=== PATIENT | female | born 1990 | race Caucasian/White ===

== ENCOUNTER 2023-08-08 10:01 | Inpatient (IN) ==
[~2023-08-08 10:01] MED LIST: ONDANSETRON INJ 2 MG/ML 2 ML VIAL ONE
[2023-08-08] MEDS: SODIUM CHLORIDE 0.9% 500 ML IV STA (10:05)
[2023-08-08] MEDS: KETOROLAC TROMETHAMINE 15 MG/ML VIAL IV STA (10:05)
[2023-08-08] MEDS: ONDANSETRON INJ 2 MG/ML 2 ML VIAL IV STA (10:05)
[2023-08-08] MEDS: KETOROLAC TROMETHAMINE 15 MG/ML VIAL ONE (10:06)
--- NOTE | 2023-08-08 10:09 | Emergency Department Note ---
History of Present Illness General Chief complaint: Abdominal Pain Stated complaint: abd pain Time Seen by Provider: 08/08/23 10:06 History of Present Illness Maximum Pain Intensity: 9 NAME: ISABEL KIRKPATRICK AGE: 32 SEX: F : 1990 ARRIVES VIA: Walk-In INFORMANT: Patient ED PROVIDER(S): IZABEL Bueno, Tesfaye Toro MD The patient is a 32-year-old female who arrives to the emergency department for evaluation of epigastric pain, acute onset. Patient is a junior technical writer here at the [employer], she reports shortly after eating breakfast she began to have severe epigastric pain with nausea and vomiting. She states she had a syncopal episode from severe pain. The patient denies fever, diarrhea, constipation, urinary concerns. Home Medications Medication Instructions Recorded Confirmed Type escitalopram oxalate 20 mg tablet 20 mg PO QAM 08/08/23 08/08/23 History Allergies Allergy/AdvReac Type Severity Reaction Status Date / Time Sulfa (Sulfonamide Allergy Intermediate Hives Verified 08/08/23 12:10 Antibiotics) Past Med/Surg History Medical History Anxiety and depression Social History Smoking Status: Never smoker Preferred Language: Tuvaluan Feels Safe at Home: Yes Physical Exam VITALS: Vitals are noted on the nurse's note and reviewed by myself. Vital signs stable. GENERAL: 32-year-old female, in no acute distress, nondiaphoretic, well- developed well-nourished. SKIN: The skin was without rashes, erythema, edema, or bruising. HEAD: Normocephalic atraumatic. HEART: Regular rate and rhythm without murmurs gallops or rubs. LUNGS: Clear to auscultation bilaterally without wheezes, rales or rhonchi. No retractions or accessory muscle use. ABDOMEN: Positive bowel sounds x 4. Tender to palpation epigastric, right upper quadrant. NEURO: Patient was alert and oriented to person place and time. No focal neurological deficits. Course Administered Medications Discontinued Medications Hydromorphone HCl (Hydromorphone Inj 0.5 Mg/0.5 Ml Syr) 0.5 mg IV NOW STA Stop: 08/08/23 10:17 Last Admin: 08/08/23 10:19 Dose: 0.5 mg Documented By: EDEN Hydromorphone HCl (Hydromorphone Inj 0.5 Mg/0.5 Ml Syr) 0.5 mg IV NOW STA Stop: 08/08/23 10:54 Last Admin: 08/08/23 11:02 Dose: 0.5 mg Documented By: EDEN Hydromorphone HCl (Hydromorphone Inj 0.5 Mg/0.5 Ml Syr) 0.25 mg IV NOW STA Stop: 08/08/23 12:17 Last Admin: 08/08/23 12:26 Dose: 0.25 mg Documented By: EDEN Hydromorphone HCl (Hydromorphone Inj 0.5 Mg/0.5 Ml Syr) 0.5 mg IV Q4H PRN PRN Reason: Moderate Pain (4,5,6) on NRS Stop: 08/22/23 19:33 Last Admin: 08/08/23 19:55 Dose: 0.5 mg Documented By: GEORGE Sodium Chloride (Nss) 500 mls @ 999 mls/hr IV .Q31M STA Stop: 08/08/23 10:33 Last Infusion: 08/08/23 11:02 Dose: Infused Documented By: Admin: 08/08/23 10:05 Dose: 999 mls/hr Documented By: EDEN Parenteral Electrolytes (Plasma-Lyte A Ph 7.4) 1,000 mls @ 125 mls/hr IV .Q8H FABRICIO Stop: 08/09/23 08:14 Last Admin: 08/08/23 17:34 Dose: 125 mls/hr Documented By: AMBER Ceftriaxone Sodium 2,000 mg/ (Dextrose) 50 mls @ 100 mls/hr IV NOW STA; Protocol Stop: 08/08/23 16:51 Last Infusion: 08/08/23 17:38 Dose: Infused Documented By: Admin: 08/08/23 16:55 Dose: 100 mls/hr Documented By: AMBER Metronidazole (Flagyl) 500 mg in 100 mls @ 100 mls/hr IV NOW STA; Protocol Stop: 08/08/23 17:21 Last Infusion: 08/08/23 19:21 Dose: Infused Documented By: Admin: 08/08/23 18:11 Dose: 100 mls/hr Documented By: AMBER Acetaminophen (Ofirmev) 1,000 mg in 100 mls @ 400 mls/hr IV NOW STA Stop: 08/08/23 19:46 Last Infusion: 08/08/23 20:12 Dose: Infused Documented By: Admin: 08/08/23 19:54 Dose: 400 mls/hr Documented By: GEORGE Ioversol (Optiray 320 100ml) 93 ml IV ONCE ONE Stop: 08/08/23 10:45 Last Admin: 08/08/23 10:44 Dose: 1 ml Documented By: JOANNE Ketorolac Tromethamine (Ketorolac Tromethamine 15 Mg/Ml Vial) Confirm Administered Dose 15 mg .ROUTE .STK-MED ONE Stop: 08/08/23 10:05 Last Admin: 08/08/23 10:06 Dose: Not Given Documented By: EDEN Ketorolac Tromethamine (Ketorolac Tromethamine 15 Mg/Ml Vial) 15 mg IV NOW STA Stop: 08/08/23 10:05 Last Admin: 08/08/23 10:05 Dose: 15 mg Documented By: EDEN Morphine Sulfate (Morphine Sulfate 4 Mg/Ml 1 Ml Carp\Vial) 4 mg IV NOW STA Stop: 08/08/23 10:14 Last Admin: 08/08/23 10:19 Dose: Not Given Documented By: JOSEPH Ondansetron HCl (Ondansetron Inj 2 Mg/Ml 2 Ml Vial) 4 mg IV NOW STA Stop: 08/08/23 10:03 Last Admin: 08/08/23 10:05 Dose: 4 mg Documented By: EDEN Medical Decision Making Differential Diagnosis Appendicitis, ovarian cyst, ovarian torsion, ectopic , TOA, PID, infections, diverticulitis, UTI, obstruction, mesenteric ischemia, aortic pathology, inflammatory bowel disease, renal colic, PUD, pancreatitis, biliary pathology, hernia, volvulus, constipation, as well as other pathologies. Medical Records Attestation: I reviewed the patient's medical records. Home Medications Current Medication List: was personally reviewed by me Laboratory Data Attestation: I reviewed the patient's lab results. No leukocytosis, stable hemoglobin hematocrit, no electrolyte abnormalities, total 0.3, AST 41, ALT 25, lipase 620. 08/08/23 10:05 08/08/23 19:47 Lab Results 08/08/23 08/08/23 Range/Units 10:05 10:26 WBC 7.70 (4.8-10.8) K/ul RBC 4.18 L (4.20-5.40) M/uL Hgb 13.3 (12.0-16.0) g/dl POC Hgb 11.9 L (12.0-16.0) g/dl Hct 39.2 (37.0-47.0) % POC Hct 35 L (37-47) % MCV 93.8 (80.0-100.0) fL MCH 31.8 (25.0-34.0) pg MCHC 33.9 (32.0-36.0) g/dL RDW Std Deviation 42.8 (36.4-46.3) fL RDW Coeff of Angelita 12.4 (11.5-14.5) % Plt Count 367 (130-400) K/uL MPV 9.8 (9.4-12.4) fL Immature Gran % (Auto) 0.1 % Neut % (Auto) 58.9 % Lymph % (Auto) 29.9 % Ransom % (Auto) 8.2 % Eos % (Auto) 1.9 % Baso % (Auto) 1.0 % Neut # (Auto) 4.53 (1.40-6.50) K/uL Lymph # (Auto) 2.30 (1.20-3.40) K/uL Ransom # (Auto) 0.63 H (0.11-0.59) K/uL Eos # (Auto) 0.15 (0.00-0.50) K/uL Baso # (Auto) 0.08 (0.00-0.20) K/uL Immature Gran # (Auto) 0.01 (0.01-0.20) K/uL POC Sodium 139 (135-144) mmol/L Sodium 138 (136-145) mmol/L POC Potassium 3.7 (3.3-5.0) mmol/L Potassium 3.9 (3.5-5.1) mmol/L POC Chloride 104 (101-112) mmol/L Chloride 105 (98-107) mmol/L Carbon Dioxide 27 (21-32) mmol/L POC Total CO2 24 (24-31) mmol/L Anion Gap 6 (3-11) POC Anion Gap 16.0 (16-25) mmol/L POC BUN 12 (7-18) mg/dl BUN 13 (6-23) mg/dl Creatinine 0.81 (0.6-1.2) mg/dl POC Creatinine 0.8 (0.6-1.3) mg/dl Est Cr Clr Drug Dosing 97.9 ml/min Est GFR ( Amer) 112.2 ml/min Est GFR (Non-Af Amer) 96.8 ml/min BUN/Creatinine Ratio 16.0 (10-20) Glucose 88 (70-99(Fasting)) mg/dl POC Glucose (other) 111 H (70-99) mg/dl Calcium 9.4 (8.6-10.3) mg/dl POC Ioniz Calcium Kenyatta 1.20 (1.12-1.32) mmol/l Total Bilirubin 0.3 (0.2-1.0) mg/dl Direct Bilirubin 0.1 (0-0.2) mg/dl AST 41 H (13-39) U/L ALT 25 (7-52) U/L Alkaline Phosphatase 77 (34-104) U/L Total Protein 7.1 (6.0-8.3) gm/dl Albumin 4.6 (3.4-5.0) gm/dl Globulin 2.5 (2.5-4.0) gm/dl Albumin/Globulin Ratio 1.8 (0.9-2) Triglycerides 86 (0-150) mg/dl Lipase 620 H (11-82) U/L HCG, Qual Negative (Negative) MDM Narrative Patient is a 32-year-old female who arrives to the emergency department for the above-stated complaint. Upon examination the patient is in severe pain, she is currently vomiting and unable to sit comfortably for exam. She has no previous abdominal history. The pain was an acute onset, and severe. A saline lock was established, CBC, CMP, lipase, serum . CBC, CMP were reassuring, lipase was elevated at 620. CT imaging of the abdomen and pelvis was obtained which shows cholelithiasis with borderline gallbladder wall thickening. Additionally, there is mild intrahepatic and extrahepatic biliary ductal dilation secondary to choledocholithiasis. Ultrasound imaging was obtained which showed a stone within the gallbladder neck versus cystic duct. The patient requested to be transferred to [place] since it is closer to her home. She was accepted at this facility by gastroenterology for ERCP. They reported they will contact us with a bed assignment. Patient was provided with IV Dilaudid 0.5 mg x 2, with repeat dosing of 0.25 mg as needed. She was also provided with IV Zofran, and 1 L of normal saline. The community education coordinator check on bed assignment, and reported the patient would not have a bed assigned until at least morning of the next day. At that time I spoke with case management regarding patient admission. Dr. Shepherd from [facility] accepted the patient for admission until transfer the following morning. Please refer to Dr. Shepherd's documentation for further care of the patient. Impression & Plan Choledocholithiasis Discharge Plan Visit Data Chief Complaint: Abdominal Pain Stated Complaint: abd pain ED Provider: Tesfaye Toro ED Midlevel Provider: Zully Wan Discharge Problem: Choledocholithiasis Patient Disposition: Admitted As Inpatient Discharge Instructions Interventions: ED Discharge Assessment Last Done: 08/08/23 17:42
[2023-08-08 10:17] LABS: Basophils # (auto) 0.08 K/uL (0.00-0.20); Eosinophils # (auto) 0.15 K/uL (0.00-0.50); Eosinophils % (auto) 1.9 %; Hematocrit (blood only) 39.2 % (37.0-47.0); Hemoglobin 13.3 g/dl (12.0-16.0); Immature Granulocytes # (auto) 0.01 K/uL (0.01-0.20); Immature Granulocytes % (auto) 0.1 %; Lymphocytes % (auto) 29.9 %; Mean Corpuscular Hemoglobin 31.8 pg (25.0-34.0); Mean Corpuscular Hgb Conc 33.9 g/dL (32.0-36.0); Mean Corpuscular Volume 93.8 fL (80.0-100.0); Mean Platelet Volume 9.8 fL (9.4-12.4); Monocytes # (auto) 0.63 K/uL (0.11-0.59); Monocytes % (auto) 8.2 %; Neutrophils # (auto) 4.53 K/uL (1.40-6.50); Neutrophils % (auto) 58.9 %; Platelet Count 367 K/uL (130-400); RDW Coefficient of Variation 12.4 % (11.5-14.5); RDW Standard Deviation 42.8 fL (36.4-46.3); Red Blood Count 4.18 M/uL (4.20-5.40)
[2023-08-08] MEDS: HYDROmorphone INJ 0.5 MG/0.5 ML SYR IV STA ×3 (10:19→12:26)
[2023-08-08] MEDS: MoRPHine SULFATE 4 MG/ML 1 ML CARP\\VIAL IV STA (10:19)
[2023-08-08 10:35] LABS: Calcium 9.4 mg/dl (8.6-10.3); Creatinine Clr Calc Pharmacy 97.9 ml/min; Est GFR (African American) 112.2 ml/min; Est GFR (Non-African American) 96.8 ml/min; Potassium 3.9 mmol/L (3.5-5.1); Pregnancy Test, Serum Negative (Negative)
[2023-08-08 10:39] LABS: iSTAT Creatinine 0.8 mg/dl (0.6-1.3); iSTAT Hemoglobin 11.9 g/dl (12.0-16.0); iSTAT Ionized Calcium 1.2 mmol/l (1.12-1.32); iSTAT Potassium 3.7 mmol/L (3.3-5.0)
[2023-08-08] MEDS: OPTIRAY 320 100ml IV ONE (10:44)
--- NOTE | 2023-08-08 11:16 | CT Scan Report ---
ABDOMEN AND PELVIS CT WITH IV CONTRAST CT DOSE: 576.65 mGy.cm HISTORY: Acute epigastric abdominal pain epigastric pain TECHNIQUE: Multiaxial CT images of the abdomen and pelvis were performed following the IV administrat ion of 93 cc of Optiray, A dose lowering technique was utilized adhering to the principles of ALARA. COMPARISON STUDY: None. FINDINGS: No acute lower thoracic abnormality. No free air. Unremarkable spleen, and adrenal glands. Pancreatic duct measures up to 3 mm. No acute inflammatory changes of the pancreas. There is a puncta te calcification of the pancreatic head. Cholelithiasis with borderline gallbladder wall thickening. 6 mm stone noted within the gallbladder neck. Mild intrahepatic and extrahepatic biliary ductal dilat ion with the common bile duct measuring up to 6-7 mm. Choledocholithiasis with at least 2 stones pres ent within the mid to distal common bile duct measuring up to 9 mm. Subcentimeter probable cyst withi n the hepatic dome. Otherwise unremarkable liver. Patency of the hepatic and portal veins. There are 2 nonobstructing calculi in the inferior pole left kidney measuring up to 6 mm. Multifocal cortical scarring with areas of parenchymal thinning noted within the right kidney. Punctate right ne phrolithiasis. No ureteral calculi or hydronephrosis. Partial distention of urinary bladder. Tampon w ithin the vagina. Unremarkable uterus and adnexa. Aorta and IVC are unremarkable. No lymphadenopathy. No bowel obstruction or bowel wall thickening. Mild colonic diverticulosis. Normal appendix. There i s a 2.3 x 1.1 x 2.1 cm soft tissue attenuating nodule abutting the anterior aspect of the lower anter ior abdominal wall on image 260 series 3. There is a suggested scar of the uterus. No acut e fracture. IMPRESSION: 1. Cholelithiasis with borderline gallbladder wall thickening. Additionally, there is mild intrahepat ic and extrahepatic biliary ductal dilation secondary to choledocholithiasis. 2. No bowel obstruction or bowel wall thickening. Normal appendix. 3. Nonobstructing bilateral nephrolithiasis. 4. Multifocal cortical scarring of the right kidney. 5. Indeterminate 2.3 cm soft tissue attenuating lesion within lower left anterior abdominal wall. If the patient has a history of prior , an endometrial implant would be the primary differentia l consideration. ACT 112: Negative or not required by law. The above report was generated using voice recognition software. It may contain grammatical, syntax o r spelling errors. Electronically signed by: Yang Thomas M.D. 08/08/2023 11:15 AM
[2023-08-08 11:42] LABS: Albumin Globulin Ratio 1.8 (0.9-2); Albumin Level 4.6 gm/dl (3.4-5.0); Bilirubin,Total 0.3 mg/dl (0.2-1.0); Globulin 2.5 gm/dl (2.5-4.0); Total Protein 7.1 gm/dl (6.0-8.3)
[2023-08-08 11:48] LABS: Bilirubin Direct 0.1 mg/dl (0-0.2)
--- NOTE | 2023-08-08 12:34 | Ultrasound Report ---
US gallbladder CLINICAL HISTORY: Epigastric pain. COMPARISON STUDY: CT of the abdomen and pelvis performed earlier today. FINDINGS: There are no hepatic lesions. No intra or extrahepatic biliary ductal dilatation is present . Caliber of the common bile duct is at the upper limits of normal. Several calcified stones within t he common bile duct are noted. These were shown on CT performed earlier today. The largest is an froy gated calculus which measures 9 x 3 mm. Pancreatic body is normal. Head and tail are obscured. A ston e within the gallbladder neck versus cystic duct is noted. There is no gallbladder wall thickening. S onographic Browne sign was difficult to assess for given pain medication administration. There is no right hydronephrosis. A 3 mm right renal calculus is present. Right renal scarring is incidentally no june. IMPRESSION: 1. Stone within the gallbladder neck versus cystic duct, as shown on CT. No convincing evidence for a cute cholecystitis although sonographic Browne sign difficult to assess. 2. Choledocholithiasis, as shown on CT. Top normal caliber common bile duct. 3. Partially obscured pancreas. ACT 112: Negative or not required by law. Electronically signed by: Bebo Wilson M.D. 08/08/2023 12:32 PM
--- NOTE | 2023-08-08 15:36 | History & Physical Report ---
Date of Service August 08, 2023 Assessment & Plan (1) Choledocholithiasis: Plan: Acute onset of nausea/vomiting and abdominal pain on 08/07 Lipase elevated at 620 A/P CT revealed intrahepatic and extrahepatic biliary ductal dilation secondary to choledocholithiasis Reconfirmed on gallbladder ultrasound; no convincing evidence for acute cholecystitis Patient has been accepted for transfer to [place] for ERCP, however they will not have a bed available until tomorrow morning Pain control with acetaminophen as needed for pain 13 Dilaudid IV every 4 hours as needed for breakthrough pain Zofran as needed for nausea/vomiting Plasma-Lyte at 125 mL/hr x 2 Triglycerides ordered, pending Despite no leukocytosis, given bladder wall thickening, will cover with empiric antibiotics Rocephin 2000 g IV q24h Metronidazole 500 mg IV q8h A.m. CBC, CMP, mag, lipase (2) Anxiety and depression: Plan: Hold Lexapro for now Plan Disposition: Admit to [facility] telemetry Full code Strict n.p.o. for now, advance to clear liquid diet as tolerated in 24-48h Transfer to [place] for ERCP VTE PPx: SCDs History of Present Illness Chief Complaint: Abdominal Pain Primary Care Provider: Andrade Hensley PA-C Ni is a 32-year-old female with PMH of anxiety and depression. She presented for acute onset of upper abdominal pain, nausea, and vomiting on the morning of 08/07. 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 She reports she was at work when she developed right upper quadrant pain around 10 AM, and began vomiting when she arrived in the ED. She reports the pain was 10/10 at its worst; 1/10 at present after receiving pain medicine in the ED. She describes it as a sharp, stabbing pain. Pain with radiation to the right lower back. No pain between her shoulder blades. Patient reports that she had a breakfast sandwich today, but no other food. No recent change in diet. No past medical history of gallbladder, pancreas, or liver issues. Patient does endorse intermittent alcohol use, with the last being on Saturday 08/05 (1-2 beers); besides that she does drink maybe once a week. She denies tobacco use, smoking, and recreational drug use. Past abdominal surgeries include , and urethral stent for kidney stone. She has never had a past experience like this one. Her only medication is Lexapro for anxiety/depression, which she took this morning. Vital stable at time of admission. ED course: Hydromorphone 0.5 mg IV x 1 Hydromorphone 0.25 mg IV x 2 Zofran 4 mg IV NSS 500 mL IV ROS: Patient endorses cough (which patient attributes to lingering symptoms from recent COVID infection), acute onset of RUQ abdominal pain, nausea, and vomiting. Patient denies fever, chills, night sweats, dizziness, lightheadedness, headache, chest pain, pleuritic CP, SOB, changes in urinary/bowel habits, blood in the urine or stool, or numbness or tingling down the arms or legs. Allergies Allergy/AdvReac Type Severity Reaction Status Date / Time Sulfa (Sulfonamide Allergy Intermediate Hives Verified 08/08/23 12:10 Antibiotics) Home Medications Medication Instructions Recorded Confirmed Type escitalopram oxalate 20 mg tablet 20 mg PO QAM 08/08/23 08/08/23 History Past Med/Surg History Medical History (Updated 08/08/23 @ 16:27 by Roger Stephens PA-C) Anxiety and depression Social History Smoking Status: Never smoker Preferred Language: Romansh Feels Safe at Home: Yes Review of Systems Review of Systems: See HPI above Physical Exam Physical Exam: General: no acute distress; pleasant affect; non-toxic appearing; well- nourished; cooperative; 100% SpO2 on RA HEENT: normocephalic, atraumatic; no scleral icterus; PERRLA w/ EOMs intact; moist mucus membrane; vision and hearing grossly intact Neck: supple; no lymphadenopathy; trachea midline Skin: warm, dry without signs of tenting; no cyanosis; no rashes, bruising, lesions, or erythema noted CV: chest wall NTP; RRR; S1/S2 normal; no murmurs/rubs/gallops; pulses intact and symmetric at radial, DP, and PT Lungs: no acute respiratory distress; symmetrical chest wall expansion; clear breath sounds across all lung donald w/o adventitious sounds; no wheezing ABD: Soft, NTP; BS present; no rebound/guarding; no distention; negative Browne sign; no signs of bruising, or active bleeding on the abdomen, flanks, or back MSK: no tics or fasciculations; no edema noted in the LEs b/l, nonerythematous Neuro: A&Ox3; normal mood and affect; fluent speech; no focal deficits; sensation grossly intact in the LEs b/l Results & Data Results & Data Vital Signs (Past 12 Hours) Vital Signs Temp Pulse Pulse Resp BP BP Pulse Ox 08/08/23 13:53 83 08/08/23 12:29 86 18 136/91 100 08/08/23 11:05 88 18 122/88 96 08/08/23 10:11 115 H 08/08/23 10:07 37.0 C 97 H 22 130/109 H 99 O2 Del Method 08/08/23 13:53 08/08/23 12:29 Room Air 08/08/23 11:05 Room Air 08/08/23 10:11 08/08/23 10:07 Room Air Laboratory Results Abnormal lab results 08/08/23 08/08/23 Range/Units 10:05 10:26 RBC 4.18 L (4.20-5.40) M/uL POC Hgb 11.9 L (12.0-16.0) g/dl POC Hct 35 L (37-47) % [place] # (Auto) 0.63 H (0.11-0.59) K/uL POC Glucose (other) 111 H (70-99) mg/dl AST 41 H (13-39) U/L Lipase 620 H (11-82) U/L Diagnostic Findings Abdomen/Pelvis CT 08/08/23 10:[address] WITH IV CONTRAST CT DOSE: 576.65 mGy.cm HISTORY: Acute epigastric abdominal pain epigastric pain TECHNIQUE: Multiaxial CT images of the abdomen and pelvis were performed following the IV administration of 93 cc of Optiray, A dose lowering technique was utilized adhering to the principles of ALARA. COMPARISON STUDY: None. FINDINGS: No acute lower thoracic abnormality. No free air. Unremarkable spleen, and adrenal glands. Pancreatic duct measures up to 3 mm. No acute inflammatory changes of the pancreas. There is a punctate calcification of the pancreatic head. Cholelithiasis with borderline gallbladder wall thickening. 6 mm stone noted within the gallbladder neck. Mild intrahepatic and extrahepatic biliary ductal dilation with the common bile duct measuring up to 6-7 mm. Choledocholithiasis with at least 2 stones present within the mid to distal common bile duct measuring up to 9 mm. Subcentimeter probable cyst within the hepatic dome. Otherwise unremarkable liver. Patency of the hepatic and portal veins. There are 2 nonobstructing calculi in the inferior pole left kidney measuring up to 6 mm. Multifocal cortical scarring with areas of parenchymal thinning noted within the right kidney. Punctate right nephrolithiasis. No ureteral calculi or hydronephrosis. Partial distention of urinary bladder. Tampon within the vagina. Unremarkable uterus and adnexa. Aorta and IVC are unremarkable. No lymphadenopathy. No bowel obstruction or bowel wall thickening. Mild colonic diverticulosis. Normal appendix. There is a 2.3 x 1.1 x 2.1 cm soft tissue attenuating nodule abutting the anterior aspect of the lower anterior abdominal wall on image 260 series 3. There is a suggested scar of the uterus. No acute fracture. IMPRESSION: 1. Cholelithiasis with borderline gallbladder wall thickening. Additionally, there is mild intrahepatic and extrahepatic biliary ductal dilation secondary to choledocholithiasis. 2. No bowel obstruction or bowel wall thickening. Normal appendix. 3. Nonobstructing bilateral nephrolithiasis. 4. Multifocal cortical scarring of the right kidney. 5. Indeterminate 2.3 cm soft tissue attenuating lesion within lower left anterior abdominal wall. If the patient has a history of prior , an endometrial implant would be the primary differential consideration. ACT 112: Negative or not required by law. The above report was generated using voice recognition software. It may contain grammatical, syntax or spelling errors. Electronically signed by: Yang Thomas M.D. 08/08/2023 11:15 AM Gallbladder Ultrasound 08/08/23 11:20 US gallbladder CLINICAL HISTORY: Epigastric pain. COMPARISON STUDY: CT of the abdomen and pelvis performed earlier today. FINDINGS: There are no hepatic lesions. No intra or extrahepatic biliary ductal dilatation is present. Caliber of the common bile duct is at the upper limits of normal. Several calcified stones within the common bile duct are noted. These were shown on CT performed earlier today. The largest is an elongated calculus which measures 9 x 3 mm. Pancreatic body is normal. Head and tail are obscured. A stone within the gallbladder neck versus cystic duct is noted. There is no gallbladder wall thickening. Sonographic Browne sign was difficult to assess for given pain medication administration. There is no right hydronephrosis. A 3 mm right renal calculus is present. Right renal scarring is incidentally noted. IMPRESSION: 1. Stone within the gallbladder neck versus cystic duct, as shown on CT. No convincing evidence for acute cholecystitis although sonographic Browne sign difficult to assess. 2. Choledocholithiasis, as shown on CT. Top normal caliber common bile duct. 3. Partially obscured pancreas. ACT 112: Negative or not required by law. Electronically signed by: Bebo Wilson M.D. 08/08/2023 12:32 PM Code Status & VTE Plan Code Status Full code VTE Prophylaxis Plan VTE Prophylaxis will be ordered: Yes Supervising Physician Co-Signing Physician Notes Patient seen and examined, chart reviewed, case discussed with Roger Stepehns and I agree with the assessment and plan as above except as otherwise noted Labs and images reviewed 32-year-old female presents with abdominal pain, elevated lipase, and is found to have cholelithiasis with borderline gallbladder wall thickening in addition to mild intrahepatic and extrahepatic ductal dilation due to choledocholithiasis. Patient has been accepted at [facility] for ERCP availability, and is anticipated to have combination ERCP/lap robinson. Due to bed availability she will not be able to be transferred until tomorrow, and has been admitted to medical service pending transfer. At time of assessment she is nontoxic, does not have a transaminitis, and is not septic. Abdomen is currently nontender, she has no rebound/guarding. She reports her pain was in the epigastrium and left upper quadrant earlier but this is currently well- controlled with pain medicine. Denies nausea at time of assessment. No fever/chills/sweats. Agree with assessment and management above. Admitted on pain control, Rocephin/Flagyl, and Plasma-Lyte rather than LR due to Rocephin use. Transfer center notified of pending transfer status. Agree with assessment and management above. Strict n.p.o. should patient have a rapidly uptrending transaminitis/bili or is clinically worsening and Lu still was without bed availability, would be agreeable to reaching out to [facility] [place] next choice followed by [place] if needed. CMP trended every 8 hours Called [facility] and confirmed transfer acceptance, transfer paperwork completed and placed in patient's chart. On clinical reassessment patient is doing well and pain is adequately controlled. PG Care Time/CCT Total # of Minutes Spent Total Time Spent with Patient: Total time spent is greater than 50% in coordination of care (as documented) at patient's floor/unit and/or counseling patient: Coding [place] [address] INT INP/OBS CARE 2/55MIN Patient Type Established History Comprehensive Exam Comprehensive Medical Decision Making Moderate Complexity Diagnoses Choledocholithiasis K80.50 Anxiety and depression F41.9; F32.A
[2023-08-08] MEDS: cefTRIAXone SODIUM 2,000 MG in DEXTROSE 5 % MINI-B 50 ML IV STA (16:55)
[2023-08-08] MEDS: PLASMA-LYTE A 1,000 ML IV SCH (17:34)
[2023-08-08] MEDS: metroNIDAZOLE 500 MG/100 ML BAG IV STA (18:11)
[2023-08-08] MEDS ORDERED: HYDROmorphone INJ 1 MG/ML SYRINGE IV PRN (19:34)
[2023-08-08] MEDS ORDERED: ONDANSETRON INJ 2 MG/ML 2 ML VIAL IV PRN (19:34)
[2023-08-08] MEDS ORDERED: ACETAMINOPHEN 1,000 MG/100 ML VIAL IV PRN (19:34)
[2023-08-08] MEDS: ACETAMINOPHEN 1,000 MG/100 ML VIAL IV STA (19:54)
[2023-08-08] MEDS: HYDROmorphone INJ 0.5 MG/0.5 ML SYR IV PRN (19:55)
--- NOTE | 2023-08-08 20:03 | Discharge Summary ---
Date of Service August 08, 2023 Admission HPI Per Admitting Provider Ni is a 32-year-old female with PMH of anxiety and depression. She presented for acute onset of upper abdominal pain, nausea, and vomiting on the morning of 08/07. 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 She reports she was at work when she developed right upper quadrant pain around 10 AM, and began vomiting when she arrived in the ED. She reports the pain was 10/10 at its worst; 1/10 at present after receiving pain medicine in the ED. She describes it as a sharp, stabbing pain. Pain with radiation to the right lower back. No pain between her shoulder blades. Patient reports that she had a breakfast sandwich today, but no other food. No recent change in diet. No past medical history of gallbladder, pancreas, or liver issues. Patient does endorse intermittent alcohol use, with the last being on Saturday 08/05 (1-2 beers); besides that she does drink maybe once a week. She denies tobacco use, smoking, and recreational drug use. Past abdominal surgeries include , and urethral stent for kidney stone. She has never had a past experience like this one. Her only medication is Lexapro for anxiety/depression, which she took this morning. Vital stable at time of admission. ED course: Hydromorphone 0.5 mg IV x 1 Hydromorphone 0.25 mg IV x 2 Zofran 4 mg IV NSS 500 mL IV ROS: Patient endorses cough (which patient attributes to lingering symptoms from recent COVID infection), acute onset of RUQ abdominal pain, nausea, and vomiting. Patient denies fever, chills, night sweats, dizziness, lightheadedness, headache, chest pain, pleuritic CP, SOB, changes in urinary/bowel habits, blood in the urine or stool, or numbness or tingling down the arms or legs. Principal Diagnosis Gallstone pancreatitis Discharge Exam General: A&Ox3. NAD. Cooperative. HEENT: Atraumatic, normocephalic. Pulm: CTAB A&P. -wheezes, -rales, -rhonchi. Symmetrical chest rise. No increased work of breathing. No respiratory distress. Cardiac: RRR, -mrg. Radial pulses intact and symmetrical. Abdominal: Minimal epigastric/LUQ TTP without rebound/guarding, improving on reassessment. Abd nondistended, soft. BS present. Discharge Data Allergies Allergy/AdvReac Type Severity Reaction Status Date / Time Sulfa (Sulfonamide Allergy Intermediate Hives Verified 08/08/23 12:10 Antibiotics) Consultations 08/08/23 15:35 ED Decision to Admit Stat Ordered Studies 08/08/23 10:13 CT abd pelvis IV con only Stat 08/08/23 11:20 US gallbladder Stat Hospital Course (1) Choledocholithiasis: Summary: Patient was admitted for abdominal pain. Found to have an elevated lipase and clinically with pancreatitis, CT with biliary ductal dilation and choledocholithiasis without transaminitis. This was reviewed with [facility] for transfer for ERCP availability and was accepted to their service. Patient was admitted to medicine following bed availability with bed not suspected to be available until the following morning. Bed did become available evening of 08/07, patient was transferred to [place] for gallstone pancreatitis. At time of discharge reassessment she was hemodynamically stable, afebrile, with adequately controlled pain. She was on Rocephin/Flagyl for antibiotic coverage and continued on Plasma-Lyte. Plasma-Lyte was continued rather than LR due to Rocephin use. Admission note copied below for completion Acute onset of nausea/vomiting and abdominal pain on 08/07 Lipase elevated at 620 A/P CT revealed intrahepatic and extrahepatic biliary ductal dilation secondary to choledocholithiasis Reconfirmed on gallbladder ultrasound; no convincing evidence for acute cholecystitis Patient has been accepted for transfer to [place] for ERCP, however they will not have a bed available until tomorrow morning Pain control with acetaminophen as needed for pain 13 Dilaudid IV every 4 hours as needed for breakthrough pain Zofran as needed for nausea/vomiting Plasma-Lyte at 125 mL/hr x 2 Triglycerides ordered, pending Despite no leukocytosis, given bladder wall thickening, will cover with empiric antibiotics Rocephin 2000 g IV q24h Metronidazole 500 mg IV q8h A.m. CBC, CMP, mag, lipase (2) Anxiety and depression: Hold Lexapro for now Plan Disposition: Admit to [facility] telemetry Full code Strict n.p.o. for now, advance to clear liquid diet as tolerated in 24-48h Transfer to [place] for ERCP VTE PPx: SCDs Total Time Total Time Spent Total Time Spent (In Minutes): Time spend day of discharge 80 minutes including direct patient care, documentation, review of labs and images, and coordination of care. Discharge Plan Discharge Items Patient Disposition: Transfer Acute Care Hospital Reason For Visit: ACUTE ONSET OF ABDOMINAL PAIN, N/V Discharge Diagnosis: Gallstone pancreatitis, choledocholithiasis Activity: As commented below Non-emergency contact: Specialist Call non-emergency contact if: you have any medication questions and your symptoms worsen Follow-up/Referrals: Andrade Hensley PA-C [Primary Care Provider] - Diet: Nothing by Mouth Addtl Attending Provider Instructions: You are being transferred to [facility] for choledocholithiasis/gallstone pancreatitis where socially services including ERCP are available. They will continue your antibiotics, you were on Rocephin/Flagyl while in the ER at [employer] [facility] [employer] [facility]. Pending Studies at Discharge: Yes (ercp) Stand-Alone Forms: My [facility] Skilled Items Patient informed of condition?: Yes DNR: No Discharge Level of Care: Other Communicable Disease: No Discharge Prognosis: Stable Lines: Peripheral IV Urinary Catheter: No Medications and DC Order Prescriptions: Continued escitalopram oxalate 20 mg tablet 20 mg PO QAM Discharge Orders: Discharge Order (Routine); Ordered 08/08/23 Ordered By: Ajay Shepherd Admission Data Admit Date/Time: 08/08/23 16:01 Attending Provider: Ajay Shepherd Admit Provider: Ajay Shepherd Primary Care Provider: Andrade Hensley Other Providers: Ajay Shepherd Coding Level of Care Code INP/OBS EV SAME DAY LV 2,70MIN Diagnoses Choledocholithiasis K80.50 Anxiety and depression F41.9; F32.A
[2023-08-08 20:31] LABS: Albumin Globulin Ratio 1.6 (0.9-2); Albumin Level 3.9 gm/dl (3.4-5.0); BUN Creatinine Ratio 16.9 (10-20); Bilirubin,Total 0.4 mg/dl (0.2-1.0); Calcium 8.5 mg/dl (8.6-10.3); Creatinine Clr Calc Pharmacy 111.6 ml/min; Est GFR (African American) 131.5 ml/min; Est GFR (Non-African American) 113.5 ml/min; Globulin 2.4 gm/dl (2.5-4.0); Potassium 3.5 mmol/L (3.5-5.1); Total Protein 6.3 gm/dl (6.0-8.3)
[2023-08-09] MEDS ORDERED: metroNIDAZOLE 500 MG/100 ML BAG IV SCH (02:00)
[2023-08-09] MEDS ORDERED: cefTRIAXone SODIUM 2,000 MG in DEXTROSE 5 % MINI-B 50 ML IV SCH (17:00)
== END 2023-08-08 20:55 | disposition short-term general hospital (02) | DRG 440 ==
LOC: ED 10:01 → EDINP 16:01
DX: Z86.16 Personal history of COVID-19; F32.A Depression, unspecified; K85.10 Biliary acute pancreatitis without necrosis or infection; F41.9 Anxiety disorder, unspecified; Z88.2 Allergy status to sulfonamides

== ENCOUNTER 2024-01-14 17:17 | Inpatient (IN) ==
[2024-01-14] MEDS: ACETAMINOPHEN 1,000 MG/100 ML VIAL IV STA (17:46)
[2024-01-14] MEDS: SODIUM CHLORIDE 0.9% 1,000 ML IV STA (17:46)
--- NOTE | 2024-01-14 17:51 | Emergency Department Note ---
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 She reports she has been treated recently with multiple different antibiotics for a UTI, however, her symptoms appear to be worsening. She states she has developed left flank pain and is overall feeling unwell. She reports an episode of nausea with vomiting. She states she does have a history of previous pyelonephritis with an obstructing stone. She reports she is currently 17 weeks gestation, she denies pelvic cramping, or vaginal bleeding. REVIEW OF SYSTEMS: A review of systems was performed with positives and pertinent negatives listed in the history of present illness. All other systems were reviewed and are negative. ALLERGIES: See below MEDICATIONS: See below PMH: See below PHYSICAL EXAM: VITALS: Vitals are noted on the nurse's note and reviewed by myself. Vital signs upon initial intake show hypotension, with tachycardia. GENERAL: 33-year-old female, in no acute distress, nondiaphoretic, well- developed well-nourished. SKIN: The skin was without rashes, erythema, edema, or bruising. HEAD: Normocephalic atraumatic. NECK: Supple without nuchal rigidity. No lymphadenopathy. HEART: Tachycardia without murmurs gallops or rubs. LUNGS: Clear to auscultation bilaterally without wheezes, rales or rhonchi. No retractions or accessory muscle use. ABDOMEN: Positive bowel sounds x 4. Soft, nontender, without masses or organomegaly. Browne sign negative. No guarding or rebound tenderness. Positive CVA TTP left flank. MUSCULOSKELETAL: No muscle atrophy, erythema, or edema noted. Full range of motion without joint tenderness in all extremities. No tenderness to palpation. Normal gait. Strength 5/5 throughout. NEURO: Patient was alert and oriented to person place and time. No focal neurological deficits. MEDICAL DECISION MAKING: The patient is a pleasant, 33-year-old female who presents to the emergency department for evaluation of the above stated complaint. Due to , a renal US was ordered for diagnosis of hydronephrosis, or a stone. A saline lock was established, CBC, CMP, lactate, procalcitonin, lipase, urinalysis were obtained. The patient was provided 1LNSS bolus with 1gm of IV acetaminophen. CBC shows leukocytosis of 18, hemoglobin 10.4, hematocrit 29.6, CMP shows slight hypokalemia at 3.2, lactate negative, lipase negative, urinalysis 3+ leukocyte esterase, positive blood, greater than 50 WBCs, 1+ bacteria, negative nitrites. Blood cultures were obtained prior to administration of 1 g of IV Rocephin. A second liter of normal saline was administered to the patient. The patient reported worsening of her CVA tenderness, at that time. I provided her with 2 mg of IV morphine. Ultrasound imaging shows slight right and mild left hydronephrosis with bilateral nonobstructing intrarenal calculi. Both ureteral jets are seen and there is a minimal amount of debris within the urinary bladder. Upon reevaluation the patient reports an increase in pain, and was provided a second dose of IV morphine. I contacted case management to facilitate admission to the [facility] hospitalist group. The patient's vital signs were slightly improving during the stay, and she remained afebrile upon repeat temperature check, however I am concerned for developing sepsis. Dr. Mary Higgins was briefed on the patient's course of treatment, and accepted the patient under her care. Please refer to Dr. Higgins's documentation for further patient workup and treatment. DIFFERENTIAL DIAGNOSIS: Nephrolithiasis, UTI, pyelonephritis, renal colic, musculoskeletal, gastrointestinal, gynecological, as well as other pathologies. Continuous scene shifter: Order was placed for continuous scene shifter. Patient was placed on the scene shifter. Patient was noted to be in sinus tachycardia at an initial rate of 97 bpm. The chart was completed utilizing [employer] voice recognition software. Grammatical errors, random word insertions, pronoun errors, and incomplete sentences are an occasional consequence of this system due to software limitations, ambient noise, and hardware issues. Any formal questions or concerns about the content, text, or information contained within the body of this dictation should be directly addressed to the physician for clarification. Past Med/Surg History Problem List (Updated 01/15/24 @ 08:41 by IZABEL Campos) Flank Pain (Acute) Tachycardia Pyelonephritis affecting in second trimester (Acute) UTI (urinary tract infection) during Nephrolithiasis Choledocholithiasis (Acute) Medical History Anxiety and depression Social History Smoking Status: Never smoker Hx Alcohol Use: No Hx Substance Use: No Preferred Language: Kyrgyz Communication Ability: Effective Hardware Technician Required: No Beliefs That Will Affect Care: None Current Living Situation: Significant Other Current Living Situation Comment: 1 child at home with SO Feels Safe at Home: Yes Safety Concerns: Feels Safe At This Time Assistive Devices: None Allergies Allergies Allergy/AdvReac Type Severity Reaction Status Date / Time Sulfa (Sulfonamide Allergy Intermediate Hives Verified 08/08/23 12:10 Antibiotics) Home Meds Home Medications Medication Instructions Recorded Confirmed escitalopram oxalate 20 mg tablet 20 mg PO QAM 08/08/23 01/14/24 cephalexin 500 mg capsule 500 mg PO 4XD 01/14/24 01/14/24 Results & Data (ED) Vital Signs Vital Signs - 24 hr 01/14/24 17:32 01/14/24 20:06 01/14/24 20:06 Temperature 36.9 C Temperature Source Temporal Artery Scan Pulse Rate 104 H 95 H 93 H Pulse Rate [Apical] Pulse Rate from SpO2 Sensor 92 H Respiratory Rate 16 21 Respiratory Effort / Characteristics Non-Labored Spontaneous Respiratory Depth Normal Respiratory Pattern Blood Pressure 102/57 L Blood Pressure [Right Arm] Blood Pressure Mean 72 Blood Pressure Mean [Right Arm] Blood Pressure Position Sitting Pulse Oximetry 100 100 Oxygen Delivery Method Room Air Sepsis Recent Fever Within 48 Hours No Sepsis New/Unexplained Change in Mental Status N/A Sepsis Action Taken by Nursing No Action Required 01/14/24 20:09 01/14/24 20:09 01/14/24 20:30 Temperature Temperature Source Pulse Rate 100 H 106 H Pulse Rate [Apical] 100 H Pulse Rate from SpO2 Sensor 109 H Respiratory Rate 20 20 21 Respiratory Effort / Characteristics Non-Labored Spontaneous Respiratory Depth Normal Respiratory Pattern Regular Blood Pressure Blood Pressure [Right Arm] 112/67 Blood Pressure Mean Blood Pressure Mean [Right Arm] 82 Blood Pressure Position Pulse Oximetry 100 100 92 Oxygen Delivery Method Room Air Sepsis Recent Fever Within 48 Hours Sepsis New/Unexplained Change in Mental Status Sepsis Action Taken by Nursing 01/14/24 20:51 01/14/24 21:00 01/14/24 21:04 Temperature 36.8 C Temperature Source Oral Pulse Rate 105 H 121 H Pulse Rate [Apical] Pulse Rate from SpO2 Sensor 106 H 120 H Respiratory Rate 21 22 Respiratory Effort / Characteristics Respiratory Depth Respiratory Pattern Blood Pressure Blood Pressure [Right Arm] Blood Pressure Mean Blood Pressure Mean [Right Arm] Blood Pressure Position Pulse Oximetry 100 90 Oxygen Delivery Method Sepsis Recent Fever Within 48 Hours Sepsis New/Unexplained Change in Mental Status Sepsis Action Taken by Nursing 01/14/24 21:05 01/14/24 21:07 01/14/24 21:12 Temperature Temperature Source Pulse Rate 108 H Pulse Rate [Apical] 120 H Pulse Rate from SpO2 Sensor 111 H Respiratory Rate 20 21 Respiratory Effort / Characteristics Respiratory Depth Respiratory Pattern Blood Pressure 127/62 Blood Pressure [Right Arm] 127/62 Blood Pressure Mean 85 Blood Pressure Mean [Right Arm] 83 Blood Pressure Position Pulse Oximetry 99 100 Oxygen Delivery Method Room Air Sepsis Recent Fever Within 48 Hours Sepsis New/Unexplained Change in Mental Status Sepsis Action Taken by Nursing 01/14/24 21:21 01/14/24 21:45 01/14/24 21:51 Temperature Temperature Source Pulse Rate 121 H 120 H 116 H Pulse Rate [Apical] Pulse Rate from SpO2 Sensor 117 H 122 H 118 H Respiratory Rate 20 22 20 Respiratory Effort / Characteristics Respiratory Depth Respiratory Pattern Blood Pressure Blood Pressure [Right Arm] Blood Pressure Mean Blood Pressure Mean [Right Arm] Blood Pressure Position Pulse Oximetry 100 100 97 Oxygen Delivery Method Sepsis Recent Fever Within 48 Hours Sepsis New/Unexplained Change in Mental Status Sepsis Action Taken by Nursing 01/14/24 22:12 01/14/24 22:24 01/14/24 22:31 Temperature 37.9 C H Temperature Source Oral Pulse Rate 109 H 109 H Pulse Rate [Apical] 120 H Pulse Rate from SpO2 Sensor 110 H 108 H Respiratory Rate 24 24 20 Respiratory Effort / Characteristics Non-Labored Spontaneous Respiratory Depth Normal Respiratory Pattern Regular Blood Pressure Blood Pressure [Right Arm] 127/62 Blood Pressure Mean Blood Pressure Mean [Right Arm] 83 Blood Pressure Position Pulse Oximetry 100 100 98 Oxygen Delivery Method Room Air Sepsis Recent Fever Within 48 Hours Sepsis New/Unexplained Change in Mental Status Sepsis Action Taken by Nursing 01/14/24 22:32 01/14/24 22:32 01/14/24 22:36 Temperature Temperature Source Pulse Rate 113 H Pulse Rate [Apical] Pulse Rate from SpO2 Sensor 112 H Respiratory Rate 27 H Respiratory Effort / Characteristics Respiratory Depth Respiratory Pattern Blood Pressure 107/50 L 107/50 L Blood Pressure [Right Arm] Blood Pressure Mean 61 61 Blood Pressure Mean [Right Arm] Blood Pressure Position Pulse Oximetry 99 Oxygen Delivery Method Sepsis Recent Fever Within 48 Hours Sepsis New/Unexplained Change in Mental Status Sepsis Action Taken by Nursing 01/14/24 22:51 01/14/24 23:03 Temperature Temperature Source Pulse Rate 123 H 110 H Pulse Rate [Apical] Pulse Rate from SpO2 Sensor 122 H 110 H Respiratory Rate 27 H 25 H Respiratory Effort / Characteristics Respiratory Depth Respiratory Pattern Blood Pressure Blood Pressure [Right Arm] Blood Pressure Mean Blood Pressure Mean [Right Arm] Blood Pressure Position Pulse Oximetry 98 98 Oxygen Delivery Method Sepsis Recent Fever Within 48 Hours Sepsis New/Unexplained Change in Mental Status Sepsis Action Taken by Nursing Laboratory Data 01/15/24 04:09 01/15/24 04:09 Lab Results 01/14/24 01/14/24 01/14/24 Range/Units 17:44 17:48 18:58 WBC 18.00 H (4.8-10.8) K/ul RBC 3.27 L (4.20-5.40) M/uL Hgb 10.4 L (12.0-16.0) g/dl Hct 29.6 L (37.0-47.0) % MCV 90.5 (80.0-100.0) fL MCH 31.8 (25.0-34.0) pg MCHC 35.1 (32.0-36.0) g/dL RDW Std Deviation 45.4 (36.4-46.3) fL RDW Coeff of Angelita 14.2 (11.5-14.5) % Plt Count 295 (130-400) K/uL MPV 9.9 (9.4-12.4) fL Immature Gran % (Auto) 0.6 % Neut % (Auto) 92.3 % Lymph % (Auto) 3.1 % [place] % (Auto) 3.8 % Eos % (Auto) 0.1 % Baso % (Auto) 0.1 % Neut # (Auto) 16.61 H (1.40-6.50) K/uL Lymph # (Auto) 0.56 L (1.20-3.40) K/uL [place] # (Auto) 0.69 H (0.11-0.59) K/uL Eos # (Auto) 0.01 (0.00-0.50) K/uL Baso # (Auto) 0.02 (0.00-0.20) K/uL Immature Gran # (Auto) 0.11 (0.01-0.20) K/uL Sodium 134 L (136-145) mmol/L Potassium 3.2 L (3.5-5.1) mmol/L Chloride 103 (98-107) mmol/L Carbon Dioxide 21 (21-32) mmol/L Anion Gap 10 (3-11) BUN 10 (6-23) mg/dl Creatinine 0.95 (0.6-1.2) mg/dl Est Cr Clr Drug Dosing 82.7 ml/min Est GFR ( Amer) 91.9 ml/min Est GFR (Non-Af Amer) 79.3 ml/min BUN/Creatinine Ratio 10.5 (10-20) Glucose 122 H (70-99(Fasting)) mg/dl Lactate 1.0 0.9 (0.4-2.0) mmol/L Calcium 9.3 (8.6-10.3) mg/dl Total Bilirubin 0.5 (0.2-1.0) mg/dl AST 17 (13-39) U/L ALT 15 (7-52) U/L Alkaline Phosphatase 86 (34-104) U/L Total Protein 7.0 (6.0-8.3) gm/dl Albumin 3.8 (3.4-5.0) gm/dl Globulin 3.2 (2.5-4.0) gm/dl Albumin/Globulin Ratio 1.2 (0.9-2) Lipase 27 (11-82) U/L Procalcitonin 12.40 H (0-0.5) ng/ml Urine Color Yellow Urine Appearance Cloudy A (Clear) Urine pH 6.0 (4.5-7.5) Ur Specific [place] 1.010 (1.000-1.030) Urine Protein 1+ H (Negative) Urine Glucose (UA) Negative (Negative) Urine Ketones 2+ H (Negative) Urine Blood Trace H (Negative) Urine Nitrite Negative (Negative) Urine Bilirubin Negative (Negative) Urine Urobilinogen Negative (Negative) Ur Leukocyte Esterase 3+ H (Negative) Urine WBC (Auto) >50 H (0-5) /hpf Urine RBC (Auto) 0-2 (0-2) /hpf U Hyaline Cast (Auto) 3-5 H (0-2) /lpf U Epithel Cells (Auto) 3-5 H (0-2) /hpf Urine Bacteria (Auto) 1+ H (None Seen) Administered Medications Hydromorphone HCl (Hydromorphone Inj 0.5 Mg/0.5 Ml Syr) 0.5 mg IV Q4H PRN PRN Reason: Pain Stop: 01/29/24 01:04 Last Admin: 01/15/24 05:36 Dose: 0.5 mg Documented By: Admin: 01/15/24 01:25 Dose: 0.5 mg Documented By: BROOK Sodium Chloride (Nss) 1,000 mls @ 150 mls/hr IV .Q6H40M FABRICIO Stop: 01/15/24 14:24 Last Admin: 01/15/24 01:24 Dose: 150 mls/hr Documented By: BROOK Discontinued Medications Hydromorphone HCl (Hydromorphone Inj 0.5 Mg/0.5 Ml Syr) 0.5 mg IV NOW STA Stop: 01/14/24 22:23 Last Admin: 01/14/24 22:28 Dose: 0.5 mg Documented By: BROOK Sodium Chloride (Nss) 1,000 mls @ 999 mls/hr IV .Q1H1M STA Stop: 01/14/24 18:37 Last Infusion: 01/14/24 20:08 Dose: Infused Documented By: Admin: 01/14/24 17:46 Dose: 999 mls/hr Documented By: JOSE Acetaminophen (Ofirmev) 1,000 mg in 100 mls @ 400 mls/hr IV NOW STA Stop: 01/14/24 17:51 Last Infusion: 01/14/24 18:17 Dose: Infused Documented By: Admin: 01/14/24 17:46 Dose: 400 mls/hr Documented By: JOSE Ceftriaxone Sodium (Rocephin) 1,000 mg in 50 mls @ 100 mls/hr IV NOW STA Stop: 01/14/24 19:06 Last Infusion: 01/14/24 20:08 Dose: Infused Documented By: Admin: 01/14/24 19:01 Dose: 100 mls/hr Documented By: APRIL Sodium Chloride (Nss) 1,000 mls @ 999 mls/hr IV .Q1H1M ONE Stop: 01/14/24 19:37 Last Infusion: 01/14/24 21:07 Dose: Infused Documented By: Admin: 01/14/24 20:05 Dose: 999 mls/hr Documented By: BROOK Piperacillin Sod/Tazobactam Sod (Zosyn) 4.5 gm in 100 mls @ 200 mls/hr IV NOW STA; Protocol Stop: 01/15/24 06:51 Last Admin: 01/15/24 07:16 Dose: 200 mls/hr Documented By: SUSAN Morphine Sulfate (Morphine Sulfate 2 Mg/Ml Carp) 2 mg IV NOW STA Stop: 01/14/24 18:40 Last Admin: 01/14/24 18:50 Dose: 2 mg Documented By: APRIL Morphine Sulfate (Morphine Sulfate 4 Mg/Ml 1 Ml Carp\Vial) 4 mg IV NOW STA Stop: 01/14/24 21:03 Last Admin: 01/14/24 21:09 Dose: 4 mg Documented By: BROOK Potassium Chloride (Potassium Chloride Crtab 20 Meq Tabcr) 40 meq PO NOW STA Stop: 01/15/24 03:44 Last Admin: 01/15/24 05:36 Dose: 40 meq Documented By: ESTELLE Imaging Data Radiologist's Impression: Renal Ultrasound 01/14/24 17:37 Exam(s): US RENAL EXAM: US Retroperitoneal Limited, Renal CLINICAL HISTORY: Reason for exam: possible infected stone, . TECHNIQUE: Real-time limited ultrasound of the retroperitoneum with image documentation. COMPARISON: No relevant prior studies available. FINDINGS: Right kidney: Mild right hydronephrosis. There is a 0.3 cm nonobstructing intrarenal calculus in the midpole right kidney. Left kidney: Moderate left hydronephrosis with nonobstructing 0.6 cm calculus within the lower pole left kidney. Bladder: Ureteral jets are seen bilaterally. Minimal amount of debris seen within the urinary bladder. IMPRESSION: Slight right and mild left hydronephrosis with bilateral nonobstructing intrarenal calculi. Both ureteral jets are seen and there is a minimal amount of debris within the urinary bladder. Findings may represent cystitis in the appropriate clinical setting. Correlate clinically with urinalysis. Electronically signed by: Serjio Artis MD 01/14/24 21:17 PM Discharge Plan Visit Data Chief Complaint: Flank Pain Stated Complaint: LT FLANK PAIN ED Provider: Luigi Rosenthal ED Midlevel Provider: Zully Wan Discharge Problem: Pyelonephritis affecting in second trimester, Flank Pain Discharge Instructions Interventions: ED Discharge Assessment Last Done: 01/15/24 01:05
[2024-01-14 18:04] LABS: Hematocrit (blood only) 29.6 % (37.0-47.0); Hemoglobin 10.4 g/dl (12.0-16.0); Mean Corpuscular Hemoglobin 31.8 pg (25.0-34.0); Mean Corpuscular Hgb Conc 35.1 g/dL (32.0-36.0); Mean Corpuscular Volume 90.5 fL (80.0-100.0); Mean Platelet Volume 9.9 fL (9.4-12.4); Platelet Count 295 K/uL (130-400); RDW Coefficient of Variation 14.2 % (11.5-14.5); RDW Standard Deviation 45.4 fL (36.4-46.3); Red Blood Count 3.27 M/uL (4.20-5.40)
[2024-01-14 18:06] LABS: Appearance Urine Cloudy (Clear); Bacteria Urine Automated 1+ (None Seen); Bilirubin Urine Negative (Negative); Blood Urine Trace (Negative); Color Urine Yellow; Glucose Urine UA Negative (Negative); Ketones Urine 2+ (Negative); Leukocyte Esterase Urine 3+ (Negative); Nitrite Urine Negative (Negative); Protein Urine 1+ (Negative); RBC Urine Automated 0-2 /hpf (0-2); Urobilinogen Urine Negative (Negative); WBC Urine Automated >50 /hpf (0-5)
[2024-01-14 18:20] LABS: Albumin Globulin Ratio 1.2 (0.9-2); Albumin Level 3.8 gm/dl (3.4-5.0); BUN Creatinine Ratio 10.5 (10-20); Bilirubin,Total 0.5 mg/dl (0.2-1.0); Calcium 9.3 mg/dl (8.6-10.3); Creatinine Clr Calc Pharmacy 82.7 ml/min; Est GFR (African American) 91.9 ml/min; Est GFR (Non-African American) 79.3 ml/min; Globulin 3.2 gm/dl (2.5-4.0); Potassium 3.2 mmol/L (3.5-5.1)
[2024-01-14 18:23] LABS: Basophils # (auto) 0.02 K/uL (0.00-0.20); Basophils % (auto) 0.1 %; Eosinophils # (auto) 0.01 K/uL (0.00-0.50); Eosinophils % (auto) 0.1 %; Immature Granulocytes # (auto) 0.11 K/uL (0.01-0.20); Immature Granulocytes % (auto) 0.6 %; Lymphocytes # (auto) 0.56 K/uL (1.20-3.40); Lymphocytes % (auto) 3.1 %; Monocytes # (auto) 0.69 K/uL (0.11-0.59); Monocytes % (auto) 3.8 %; Neutrophils # (auto) 16.61 K/uL (1.40-6.50); Neutrophils % (auto) 92.3 %
[2024-01-14] MEDS: MoRPHine SULFATE 2 MG/ML CARP IV STA (18:50)
[2024-01-14] MEDS: cefTRIAXone SODIUM 1,000 MG/50 ML BAG IV STA (19:01)
[2024-01-14] MEDS: SODIUM CHLORIDE 0.9% 1,000 ML IV ONE (20:05)
[2024-01-14] MEDS: MoRPHine SULFATE 4 MG/ML 1 ML CARP\\VIAL IV STA (21:09)
--- NOTE | 2024-01-14 21:17 | Ultrasound Report ---
Exam(s): US RENAL EXAM: US Retroperitoneal Limited, Renal CLINICAL HISTORY: Reason for exam: possible infected stone, . TECHNIQUE: Real-time limited ultrasound of the retroperitoneum with image documentation. COMPARISON: No relevant prior studies available. FINDINGS: Right kidney: Mild right hydronephrosis. There is a 0.3 cm nonobstructing intrarenal calculus in the midpole right kidney. Left kidney: Moderate left hydronephrosis with nonobstructing 0.6 cm calculus within the lower pole left kidney. Bladder: Ureteral jets are seen bilaterally. Minimal amount of debris seen within the urinary bladder. IMPRESSION: Slight right and mild left hydronephrosis with bilateral nonobstructing intrarenal calculi. Both ureteral jets are seen and there is a minimal amount of debris within the urinary bladder. Findings may represent cystitis in the appropriate clinical setting. Correlate clinically with urinalysis. Electronically signed by: Serjio Artis MD 01/14/24 21:17 PM
--- NOTE | 2024-01-14 22:21 | History & Physical Report ---
Date of Service January 14, 2024 Assessment & Plan (1) Pyelonephritis affecting in second trimester: Plan: Left kidney, due to ascending UTI 17 weeks intrauterine gestation (2nd trimester) - UA: 3+ leukocytes, 2+ ketones, 1+ bacteria - CBC: 18k wbc, trend with AM labs - elevated procalcitonin, recheck 01/15 AM Antibiotics: - given 1g ceftriaxone IV in ER - continue ceftriaxone IV 1g q24 - follow urine and blood cultures Pain: - 0.5mg dilaudid IV q4H prn - Tylenol 650mg prn : - avoid CT scan - Daily vitamin - heart tones daily (2) Nephrolithiasis: Plan: per renal US: b/l non-obstructing stones - NS maintenance fluids 100cc/hr, 2 bags ordered - BMP: trend electrolytes, kidney function - monitor I's & O's - if wbc and procalcitonin resolve but patient still in significant pain, consider urology consult for kidney stone management (3) Tachycardia: Plan: 95-120 HR, likely 2/2 pain due to pyelonephritis, kidney stones, possible sepsis - on telemetry History of Present Illness Chief Complaint: left back pain Primary Care Provider: Andrade Hensley PA-C Ni is a 33yo female with relevant past medical history of kidney stones, pyelonephritis in 2010 or 2011, currently 17wks with intrauterine gestation, came to the ED after 3 days of increasing L back/flank pain, 2 episodes of vomiting, and no appetite. Patient states she has had this pain on and off since October, and has been given 3 separate courses of antibiotics since then, currently on keflex and does not recall the previous two. Patient does not recall what antibiotic she was put on the last time she was in the hospital for pyelonephritis. States prior to the current UTI symptoms starting in October, the last time she recalls having a UTI was about 2 years ago for which she did not require hospitalization, does not recall what antibiotic she was on. Denies taking any medications besides Lexapro 20mg and her vitamins. Patient is currently having significant chills. Denies any fever, pain with urination, urinary urgency or frequency, chest pain, abdominal pain. No nausea or vomiting currently. Allergies Allergy/AdvReac Type Severity Reaction Status Date / Time Sulfa (Sulfonamide Allergy Intermediate Hives Verified 08/08/23 12:10 Antibiotics) Home Medications Medication Instructions Recorded Confirmed Type escitalopram oxalate 20 mg tablet 20 mg PO QAM 08/08/23 01/14/24 History cephalexin 500 mg capsule 500 mg PO 4XD 01/14/24 01/14/24 History Past Med/Surg History Problem List Tachycardia Pyelonephritis affecting in second trimester UTI (urinary tract infection) during Nephrolithiasis Choledocholithiasis (Acute) Medical History Anxiety and depression Social History Smoking Status: Never smoker Hx Alcohol Use: No Hx Substance Use: No Preferred Language: Persian Communication Ability: Effective Medical Record Administrator Required: No Beliefs That Will Affect Care: None Current Living Situation: Significant Other Current Living Situation Comment: 1 child at home with SO Feels Safe at Home: Yes Safety Concerns: Feels Safe At This Time Assistive Devices: None Review of Systems Review of Systems: per HPI Physical Exam Physical Exam: Constitutional: A&Ox3, appearing in moderate distress HEENT: anicteric sclerae, EOM intact Cardiovascular: tachycardic regular, no murmurs heard on auscultation Pulmonary: clear to auscultation b/l MSK: L CVA tenderness, no CVA tenderness on R; no spinal midline tenderness GI: hyperactive bowel sounds, 17wks intrauterine , nontender to palpation, no guarding or rebound Results & Data Results & Data Vital Signs (Past 12 Hours) Vital Signs Temp Pulse Pulse Resp BP BP Pulse Ox 01/14/24 21:07 120 H 20 127/62 99 01/14/24 21:04 36.8 C 01/14/24 20:09 100 H 20 100 01/14/24 20:09 100 H 20 112/67 100 01/14/24 20:06 95 H 01/14/24 17:32 36.9 C 104 H 16 102/57 L 100 O2 Del Method 01/14/24 21:07 Room Air 01/14/24 21:04 01/14/24 20:09 Room Air 01/14/24 20:09 01/14/24 20:06 01/14/24 17:32 Room Air Laboratory Results Abnormal lab results 01/14/24 01/14/24 Range/Units 17:44 17:48 WBC 18.00 H (4.8-10.8) K/ul RBC 3.27 L (4.20-5.40) M/uL Hgb 10.4 L (12.0-16.0) g/dl Hct 29.6 L (37.0-47.0) % Neut # (Auto) 16.61 H (1.40-6.50) K/uL Lymph # (Auto) 0.56 L (1.20-3.40) K/uL [place] # (Auto) 0.69 H (0.11-0.59) K/uL Sodium 134 L (136-145) mmol/L Potassium 3.2 L (3.5-5.1) mmol/L Glucose 122 H (70-99(Fasting)) mg/dl Procalcitonin 12.40 H (0-0.5) ng/ml Urine Appearance Cloudy A (Clear) Urine Protein 1+ H (Negative) Urine Ketones 2+ H (Negative) Urine Blood Trace H (Negative) Ur Leukocyte Esterase 3+ H (Negative) Urine WBC (Auto) >50 H (0-5) /hpf U Hyaline Cast (Auto) 3-5 H (0-2) /lpf U Epithel Cells (Auto) 3-5 H (0-2) /hpf Urine Bacteria (Auto) 1+ H (None Seen) Diagnostic Findings Renal Ultrasound 01/14/24 17:37 Exam(s): US RENAL EXAM: US Retroperitoneal Limited, Renal CLINICAL HISTORY: Reason for exam: possible infected stone, . TECHNIQUE: Real-time limited ultrasound of the retroperitoneum with image documentation. COMPARISON: No relevant prior studies available. FINDINGS: Right kidney: Mild right hydronephrosis. There is a 0.3 cm nonobstructing intrarenal calculus in the midpole right kidney. Left kidney: Moderate left hydronephrosis with nonobstructing 0.6 cm calculus within the lower pole left kidney. Bladder: Ureteral jets are seen bilaterally. Minimal amount of debris seen within the urinary bladder. IMPRESSION: Slight right and mild left hydronephrosis with bilateral nonobstructing intrarenal calculi. Both ureteral jets are seen and there is a minimal amount of debris within the urinary bladder. Findings may represent cystitis in the appropriate clinical setting. Correlate clinically with urinalysis. Electronically signed by: Serjio Artis MD 01/14/24 21:17 PM Supervising Physician Co-Signing Physician Notes Patient seen and examined, chart reviewed, case discussed with Dr. Chen and I agree with the assessment and plan as above. In brief, patient is a 33yo female at 17wks gestation presenting with acute pyelonephritis, left sided flank pain and CVA tenderness. On exam, patient is ill in appearance - tachycardic with HR 120 Skin - no rash HEENT - MMM, neck supple Heart - +S1/S2, regular, tachycardic, no m/r/g Lungs - CTA, no rales/rhonchi/wheezes Abd - soft, NT, +Left CVA tenderness Ext - warm, well perfused, no clubbing/cyanosis or edema Labs and images reviewed WBC=18 Procalcitonin=12.4 UT suggestive of infection Renal US with stones present - non-obstructing Assessment/Plan - 33yo female at 17 wks gestation presenting with left flank pa in, sepsis present on admission with tachycardia/leukocytosis as well as marked elevation in procalcitonin. History of stones. US read as no obstructing stones. Hydronephrosis is present, however. Concern for obstructing stone? -Continue IVF, electrolyte repletion -Ceftriaxone -Pain control with Dilaudid and Zofran PRN nausea -Urology consultation appreciated -Remainder as above Resident Activity Tracking Resident Involvement: Resident Care Provided Care Provided: Adult Hospital Medicine
[2024-01-14] MEDS: HYDROmorphone INJ 0.5 MG/0.5 ML SYR IV STA (22:28)
--- NOTE | 2024-01-15 00:27 | Urology Consultation ---
Date of Consultation January 15, 2024 Assessment & Plan (1) Pyelonephritis affecting in second trimester: Patient is being admitted on the hospitalist service. From a urologic perspective we recommend the following: Serial labs should be followed The patient should be resuscitated with intravenous fluids Appropriate cultures have been sent and patient has been initiated on antibiotics in the form of Rocephin. Culture should be followed and antibiotics can be tailored based on these results Based on patient's renal ultrasound there are no obvious obstructing kidney stones in need of immediate intervention I have discussed the case with my attending physician, Dr. Hawk. He notes that we will continue with measures as outlined above. If patient would clinically deteriorate consideration can be given to performing cystoscopic intervention I did discuss with the hospital service and asked them to notify the urologic service of patient becomes hypotensive or continues to spike fevers in excess of 38.5. I also discussed with the hospital service that the patient does spike temperatures consideration should be given to escalating her antibiotics At the present time the patient is noted to be normotensive. She is noted to be tachycardic but is afebrile at this time. Will continue to follow along with additional recommendations based on her clinical course as it unfolds History of Present Illness Reason for Consultation: Pyelonephritis History of Present Illness This is a 33 years female who is 17 weeks who presented to the emergency department secondary to concern for urinary tract infection and left flank pain. Patient notes that she has had increasing flank pain on the left side for approximately 3 days. She has had multiple episodes of nausea and vomiting and notes a poor appetite. Patient also noted she has had some intermittent fevers. She does report that she has been having similar symptoms on and off since October and has been treated with antibiotics on 3 separate occasions. Patient notes that she is currently taking Keflex but does not recall the name of her previous antibiotics. The patient does report that she has had an episode of pyelonephritis in the past which was complicated by an obstructing kidney stone that she had treated. She currently knows that she is not having any trouble urinating and denies any dysuria. She denies urinary frequency and denies hematuria. Since arrival to the hospital the patient has had labs and imaging which independent reviewed. Renal ultrasound did show some slight right-sided hydronephrosis and some mild left-sided hydronephrosis. This study also demonstrated bilateral nonobstructing intrarenal calculi. Both ureteral jets were seen and there is minimal debris noted in the bladder on this study. Labs included a CBC were white blood cell count was elevated at 18.0. Hemoglobin and hematocrit were 10.4 and 29.6. Platelet count is within the normal range. Chemistry profile showed sodium was 134 with a potassium of 3.2. BUN and creatinine were both within the normal range. Lactic acid level has been nonelevated on 2 measurements since arrival to the emergency department. The urinalysis showed cloudy urine. It was negative for nitrites but showed 3+ leukocyte Estrace and greater than 50 white blood cells per high-power field. There is 1+ bacteria noted on the study. At the time of my interview the patient was in no distress. Allergies Allergy/AdvReac Type Severity Reaction Status Date / Time Sulfa (Sulfonamide Allergy Intermediate Hives Verified 08/08/23 12:10 Antibiotics) Home Medications Medication Instructions Recorded Confirmed Type escitalopram oxalate 20 mg tablet 20 mg PO QAM 08/08/23 01/14/24 History cephalexin 500 mg capsule 500 mg PO 4XD 01/14/24 01/14/24 History Patient History Medical History Anxiety and depression Social History Smoking Status: Never smoker Preferred Language: [place]ar[place] Feels Safe at Home: Yes Review of Systems Review of Systems: All systems reviewed & are unremarkable except as noted in HPI & below Physical Exam Constitutional: WD/WN, vitals as above Eyes: no conjunctival abnormality ENMT: Ears: no hearing impairment and no external ear abnormality Mouth: no oropharynx abnormality Neck: trachea midline Respiratory: normal respiratory effort; no respiratory distress and no labored breathing Cardiovascular: Rate/Rhythm: regular rate and regular rhythm Gastrointestinal (Abdomen): Abdomen is soft, nonrigid, and nondistended. There is no pain with palpation Musculoskeletal: No calf tenderness Skin: no rashes Neurologic: moves all extremities Psychiatric: A+Ox3, euthymic affect Genitourinary: No CVA tenderness noted on the right. The patient was noted to have CVA tenderness with percussion on the left Results & Data Vital Signs (Past 12 Hours) Vital Signs Temp Pulse Pulse Resp BP BP Pulse Ox 01/15/24 00:07 37.4 C 01/15/24 00:04 114 H 18 93/66 L 100 01/14/24 23:59 107 H 01/14/24 22:31 37.9 C H 120 H 20 127/62 98 01/14/24 21:07 120 H 20 127/62 99 01/14/24 21:04 36.8 C 01/14/24 20:09 100 H 20 100 01/14/24 20:09 100 H 20 112/67 100 01/14/24 20:06 95 H 01/14/24 17:32 36.9 C 104 H 16 102/57 L 100 O2 Del Method 01/15/24 00:07 01/15/24 00:04 Room Air 01/14/24 23:59 01/14/24 22:31 Room Air 01/14/24 21:07 Room Air 01/14/24 21:04 01/14/24 20:09 Room Air 01/14/24 20:09 01/14/24 20:06 01/14/24 17:32 Room Air PG Care Time/CCT Total # of Minutes Spent Total Time Spent with Patient: Total time spent is greater than 50% in coordination of care (as documented) at patient's floor/unit and/or counseling patient: Coding Level of Care Code 50141 IN/OBS CONSULT LVL 5,80M Diagnoses Pyelonephritis affecting in second trimester O23.02
[2024-01-15] MEDS ORDERED: ONDANSETRON INJ 2 MG/ML 2 ML VIAL IV PRN (01:05)
[2024-01-15] MEDS ORDERED: POLYETHYLENE (MIRALAX) 17 GM PACK PO PRN (01:05)
[2024-01-15] MEDS: SODIUM CHLORIDE 0.9% 1,000 ML IV SCH (01:24)
[2024-01-15] MEDS: HYDROmorphone INJ 0.5 MG/0.5 ML SYR IV PRN (01:25)
--- NOTE | 2024-01-15 03:42 | Billing Data ---
Date of Service January 14, 2024 Coding Level of Care Code 13714 INT INP/OBS CARE
[2024-01-15 04:39] LABS: Hemoglobin 8.1 g/dl (12.0-16.0); Mean Corpuscular Hemoglobin 30.8 pg (25.0-34.0); Mean Corpuscular Hgb Conc 33.8 g/dL (32.0-36.0); Mean Corpuscular Volume 91.3 fL (80.0-100.0); Platelet Count 234 K/uL (130-400); RDW Coefficient of Variation 14.4 % (11.5-14.5); RDW Standard Deviation 47.3 fL (36.4-46.3); Red Blood Count 2.63 M/uL (4.20-5.40); White Blood Count 11.83 K/ul (4.8-10.8)
[2024-01-15 04:57] LABS: BUN Creatinine Ratio 6.5 (10-20); Est GFR (African American) 118.4 ml/min; Est GFR (Non-African American) 102.2 ml/min; Potassium 2.6 mmol/L (3.5-5.1)
[2024-01-15] MEDS: POTASSIUM CHLORIDE CRTAB 20 MEQ TABCR PO STA ×2 (05:36→08:26)
[2024-01-15] MEDS: 4.5GM X1 IV STA (07:16)
[2024-01-15 08:02] LABS: Magnesium 1.6 mg/dl (1.7-2.4); Phosphorus 2.7 mg/dl (2.5-4.9)
[2024-01-15] MEDS: POTASSIUM CHLORIDE / WTR 10 MEQ/100 ML PLCT IV SCH ×2 (08:27→11:35)
[2024-01-15] MEDS ORDERED: cefTRIAXone SODIUM 1,000 MG/50 ML BAG IV SCH ×2 (09:15→18:00)
[2024-01-15 09:21] LABS: Base Excess VBG -7.9 mEq/L; HCO3 VBG 18 mmol/L; Oxygen Saturation VBG < 60.0 %; PCO2 VBG 35 mmHg (38-50); PO2 VBG 29 mmHg; pH VBG 7.31 (7.36-7.41)
[2024-01-15] MEDS: PRENATAL VITAMIN 1 TAB PO SCH (10:19)
[2024-01-15] MEDS: ESCITALOPRAM OXALATE 20 MG TAB PO SCH (10:19)
[2024-01-15] MEDS ORDERED: PIPERACILLIN/TAZOBACTAM 4.5 GM/100 ML BAG IV SCH (12:00)
[2024-01-15 12:10] LABS: BUN Creatinine Ratio 6.8 (10-20); Calcium 8.2 mg/dl (8.6-10.3); Creatinine Clr Calc Pharmacy 107.6 ml/min; Est GFR (African American) 126.3 ml/min; Potassium 3.8 mmol/L (3.5-5.1)
--- NOTE | 2024-01-15 12:32 | Urology Progress Note ---
Date of Service January 15, 2024 Assessment & Plan (1) Flank Pain: (2) Nephrolithiasis: Plan Urology consulted for assistance with the patient with left flank pain of uncertain etiology Admission note suspects that this is a ascending urinary tract infection Although this is not a problem normally managed by urological surgeons, I cannot rule out the possibility that this is the diagnosis Await culture results Although she has renal stones, and ultrasound is not an adequate test to be able to determine ureteral obstruction from a stone in this setting She does not wish to pursue CT scanning I did explain to her, however that if her symptoms do not improve or she worsens clinically, without further imaging (CT or at least KUB) we cannot assess whether there is a surgical problem. She is understanding and would like to try to avoid radiation exposure if possible For the time being I would recommend continued antibiotic management of ceftriaxone and symptom management Please call us if anything changes during this hospitalization is in the current state we have nothing that indicates a reason to consider a surgery, etc Admission and Anticipated Discharge Date Admission Date: January 14, 2024 Subjective Admitted to the hospital overnight with presumed left-sided pyelonephritis? Had a leukocytosis of 18,000 on arrival which has now decreased to 11.8 She was febrile She has been persistently tachycardic since arrival She is normotensive She is mentating well She reports that she has had left flank pain for 3 months She is currently 17 weeks She has not been experiencing fevers at home throughout that time She does have a history of kidney stones as well as a known left renal stone Only imaging since arrival was an ultrasound which shows mild left hydronephrosis, renal stones but no evidence of ureteral calculi on the limited aspect of the ureter that is visualized on an ultrasound She has right-sided hydronephrosis consistent with the current stage of She had a CT in July which I have personally reviewed At the time she had a few stones in the left lower pole Her current ultrasound still shows stone within the left lower pole, uncertain there is been any change UA today is nitrite negative She reports that she is subjectively improved since arrival in the emergency room Physical Exam Physical Exam: Tender to palpation on the left flank and back Abdomen soft Results & Data Vital Signs (Past 12 Hours) Vital Signs Temp Pulse Pulse Resp BP BP Pulse Ox 01/15/24 08:30 110 H 17 101/52 L 100 01/15/24 06:44 37.3 C 01/15/24 06:44 01/15/24 06:39 101 H 20 98 01/15/24 06:21 102 H 21 98 01/15/24 06:15 101 H 19 98 01/15/24 06:00 97/52 L 01/15/24 06:00 102 H 23 98 01/15/24 05:33 105 H 19 99 01/15/24 05:21 100 H 21 98 01/15/24 05:15 101 H 21 98 01/15/24 04:54 110 H 19 98 01/15/24 04:45 107 H 21 99 01/15/24 04:33 103 H 20 98 01/15/24 04:21 103 H 20 98 01/15/24 04:00 106 H 21 99 01/15/24 04:00 103/53 L 01/15/24 03:51 103 H 23 98 01/15/24 03:45 100 H 22 98 01/15/24 03:39 103 H 23 98 01/15/24 03:33 104/58 L 01/15/24 03:33 104/58 L 01/15/24 02:39 109 H 28 H 98 01/15/24 02:30 107 H 23 97 01/15/24 02:15 111 H 23 97 01/15/24 02:00 110 H 24 97 01/15/24 01:42 108 H 25 H 98 01/15/24 01:39 110 H 22 99 01/15/24 01:33 38 C H 110 H 22 108/51 L 99 01/15/24 01:31 01/15/24 01:30 108/51 L 01/15/24 01:30 108/51 L 01/15/24 01:30 38 C H 112 H 22 108/51 L 100 01/15/24 01:18 106 H 27 H 98 01/15/24 01:12 105 H 22 98 01/15/24 01:09 103 H 21 98 01/15/24 00:57 105 H 27 H 97 Pulse Ox O2 Del Method O2 Del Method 01/15/24 08:30 Room Air 01/15/24 06:44 01/15/24 06:44 Room Air 01/15/24 06:39 01/15/24 06:21 01/15/24 06:15 01/15/24 06:00 01/15/24 06:00 01/15/24 05:33 01/15/24 05:21 01/15/24 05:15 01/15/24 04:54 01/15/24 04:45 01/15/24 04:33 01/15/24 04:21 01/15/24 04:00 01/15/24 04:00 01/15/24 03:51 01/15/24 03:45 01/15/24 03:39 01/15/24 03:33 01/15/24 03:33 01/15/24 02:39 01/15/24 02:30 01/15/24 02:15 01/15/24 02:00 01/15/24 01:42 01/15/24 01:39 01/15/24 01:33 Room Air 01/15/24 01:31 100 Room Air 01/15/24 01:30 01/15/24 01:30 01/15/24 01:30 Room Air 01/15/24 01:18 01/15/24 01:12 01/15/24 01:09 01/15/24 00:57 PG Care Time/CCT Total # of Minutes Spent Total Time Spent with Patient: Total time spent is greater than 50% in coordination of care (as documented) at patient's floor/unit and/or counseling patient: Coding Level of Care Code 64512 SUB INP/OBS CARE 2/35MIN Diagnoses Flank Pain R10.9 Nephrolithiasis N20.0
[2024-01-15] MEDS: POTASSIUM CHLORIDE CRTAB 20 MEQ TABCR PO SCH (12:39)
--- NOTE | 2024-01-15 12:49 | Hospitalist Progress Note ---
Date of Service January 15, 2024 Assessment & Plan (1) Pyelonephritis affecting in second trimester: Plan: Patient presented to ED on 01/13 for 3 days of increasing left back/flank pain, 2 episodes of vomiting and no appetite. Patient also 17 weeks intrauterine gestation (2nd trimester) UA: 3+ Leukocytes, 2+ ketones, 1+ bacteria Renal Ultrasound reviewed 01/13: slight right and mild left hydronephrosis w/ b/l nonobstructing intrarenal calculi. both ureteral jets seen & minimal amount of debris within urinary bladder. findings may represent cystitis in appropriate clinical setting. correlate clinically w/ urinalysis. CBC reviewed 01/14: WBC downtrending to 11.83, hgb 8.1 Procal reviewed 01/13: 12.40 Patient started on Rocephin in ED, then switched to Zosyn. Patient switched back to Rocephin 01/14 as she was clinically responding and WBC downtrending Urine and blood cultures pending - will follow up on results Reached out to OB provider who stated patient did not require OB consult unless she had concerns w/ her - patient denied any concerns thus far. Tylenol prn and Dilaudid prn urology consulted and reviewed note 01/14 - supportive care Avoid CT scan due to Continue daily vitamin heart tones daily AM BMP, CBC, procal, crp (2) Nephrolithiasis: Plan: per renal US: b/l non-obstructing stones - NS maintenance fluids 100cc/hr, 2 bags ordered - BMP: trend electrolytes, kidney function - monitor I's & O's - if wbc and procalcitonin resolve but patient still in significant pain, consider urology consult for kidney stone management (3) Tachycardia: Plan: 95-120 HR, likely 2/2 pain due to pyelonephritis, kidney stones, possible sepsis - on telemetry (4) Hypokalemia: Plan: Patient potassium 3.2 upon admission, further dropped to 2.6 patient repleted with 4 KCl riders and 40meq PO repeat potassium at 1200 on 01/14 reviewed: stable at 3.8 AM BMP Plan Disposition: continued in patient stay diet: regular DVT prophylaxis: SCD's Code status: full code Admission and Anticipated Discharge Date Admission Date: January 14, 2024 Subjective Patient seen and examined this morning. Patient reports lower back pain. she denies any fevers or chills. Denies any urinary symptoms. Denies any chest pain or SOB. Physical Exam 2 Constitutional: WD/WN, vitals as above Eyes: PERRL, conjunctivae normal, anicteric sclerae Respiratory: normal respiratory effort, lungs clear to auscultation Cardiovascular: RRR, no murmur, no edema Skin: no rashes, warm and dry Psychiatric: A+Ox3, euthymic affect Results & Data Results & Data Vital Signs (Past 12 Hours) Vital Signs Temp Pulse Pulse Resp BP BP Pulse Ox 01/15/24 08:30 110 H 17 101/52 L 100 01/15/24 06:44 37.3 C 01/15/24 06:44 01/15/24 06:39 101 H 20 98 01/15/24 06:21 102 H 21 98 01/15/24 06:15 101 H 19 98 01/15/24 06:00 97/52 L 01/15/24 06:00 102 H 23 98 01/15/24 05:33 105 H 19 99 01/15/24 05:21 100 H 21 98 01/15/24 05:15 101 H 21 98 01/15/24 04:54 110 H 19 98 01/15/24 04:45 107 H 21 99 01/15/24 04:33 103 H 20 98 01/15/24 04:21 103 H 20 98 01/15/24 04:00 106 H 21 99 01/15/24 04:00 103/53 L 01/15/24 03:51 103 H 23 98 01/15/24 03:45 100 H 22 98 01/15/24 03:39 103 H 23 98 01/15/24 03:33 104/58 L 01/15/24 03:33 104/58 L 01/15/24 02:39 109 H 28 H 98 01/15/24 02:30 107 H 23 97 01/15/24 02:15 111 H 23 97 01/15/24 02:00 110 H 24 97 01/15/24 01:42 108 H 25 H 98 01/15/24 01:39 110 H 22 99 01/15/24 01:33 38 C H 110 H 22 108/51 L 99 01/15/24 01:31 01/15/24 01:30 108/51 L 01/15/24 01:30 108/51 L 01/15/24 01:30 38 C H 112 H 22 108/51 L 100 01/15/24 01:18 106 H 27 H 98 01/15/24 01:12 105 H 22 98 01/15/24 01:09 103 H 21 98 01/15/24 00:57 105 H 27 H 97 Pulse Ox O2 Del Method O2 Del Method 01/15/24 08:30 Room Air 01/15/24 06:44 01/15/24 06:44 Room Air 01/15/24 06:39 01/15/24 06:21 01/15/24 06:15 01/15/24 06:00 01/15/24 06:00 01/15/24 05:33 01/15/24 05:21 01/15/24 05:15 01/15/24 04:54 01/15/24 04:45 01/15/24 04:33 01/15/24 04:21 01/15/24 04:00 01/15/24 04:00 01/15/24 03:51 01/15/24 03:45 01/15/24 03:39 01/15/24 03:33 01/15/24 03:33 01/15/24 02:39 01/15/24 02:30 01/15/24 02:15 01/15/24 02:00 01/15/24 01:42 01/15/24 01:39 01/15/24 01:33 Room Air 01/15/24 01:31 100 Room Air 01/15/24 01:30 01/15/24 01:30 01/15/24 01:30 Room Air 01/15/24 01:18 01/15/24 01:12 01/15/24 01:09 01/15/24 00:57 Laboratory Results 01/15/24 04:09 01/15/24 11:40 PG Care Time/CCT Total # of Minutes Spent Total Time Spent with Patient: Total time spent is greater than 50% in coordination of care (as documented) at patient's floor/unit and/or counseling patient: Coding Level of Care Code 93148 SUB INP/OBS CARE 3/50MIN Diagnoses Pyelonephritis affecting in second trimester O23.02 Nephrolithiasis N20.0 Tachycardia R00.0 Hypokalemia E87.6
[2024-01-15] MEDS: cefTRIAXone SODIUM 1,000 MG/50 ML BAG IV SCH (18:08)
[2024-01-15] MEDS: ACETAMINOPHEN 325 MG TAB PO PRN (21:31)
[2024-01-16 06:58] LABS: Hematocrit (blood only) 25.8 % (37.0-47.0); Hemoglobin 8.6 g/dl (12.0-16.0); Mean Corpuscular Hemoglobin 30.7 pg (25.0-34.0); Mean Corpuscular Hgb Conc 33.3 g/dL (32.0-36.0); Mean Corpuscular Volume 92.1 fL (80.0-100.0); Mean Platelet Volume 9.8 fL (9.4-12.4); Platelet Count 248 K/uL (130-400); RDW Coefficient of Variation 14.3 % (11.5-14.5); RDW Standard Deviation 48.1 fL (36.4-46.3); White Blood Count 5.59 K/ul (4.8-10.8)
[2024-01-16 07:05] LABS: BUN Creatinine Ratio 7.8 (10-20); C Reactive Protein 19.75 mg/dl (0-0.5); Calcium 8.3 mg/dl (8.6-10.3); Creatinine Clr Calc Pharmacy 122.7 ml/min; Est GFR (African American) 136.8 ml/min; Est GFR (Non-African American) 118.1 ml/min; Potassium 3.4 mmol/L (3.5-5.1)
[2024-01-16] MEDS: POTASSIUM CHLORIDE CRTAB 20 MEQ TABCR PO STA (09:28)
--- NOTE | 2024-01-16 12:26 | Discharge Summary ---
Discharge Summary Date of Service January 16, 2024 Principal Dx & Hospital Course #1 = Principal Diagnosis (1) Pyelonephritis affecting in second trimester: Patient presented to ED on 01/13 for 3 days of increasing left back/flank pain, 2 episodes of vomiting and no appetite. Patient also 17 weeks intrauterine gestation (2nd trimester). UA was +3 Leukocytes, 2+ ketones, 1+ bacteria. Urine culture negative and blood cultures negative at 24 hour marybeth. Patient was treated with Rocephin during hospital stay and discharged on Cefpodoxime for an additional 7 days. She had renal US that revealed slight right and mild left hydronephrosis w/ b/l non-obstructing intra renal calculi. both ureteral jets seen & minimal amount of debris within urinary bladder. findings may represent cystitis in appropriate clinical setting. Procal downtrended to 9.84. WBC now WNL. CRP elevated at 18 but was not checked day of admission. Patient was given tylenol and dilaudid prn with relief of pain. CT scan was avoided due to . Instructed patient to follow up closely with OB provider upon discharge (2) Nephrolithiasis: per renal US: b/l non-obstructing stones. Patient given 2L of fluids. (3) Tachycardia: 95-120 HR, likely 2/2 pain due to pyelonephritis, kidney stones, possible sepsis (4) Hypokalemia: Patient potassium 3.2 upon admission, further dropped to 2.6. Reviewed BMP 01/15 that showed potassium was 3.4 and patient was given additional PO potassium. Plan All questions answered at time of discharge. Admission HPI Per Admitting Provider Ni is a 33yo female with relevant past medical history of kidney stones, pyelonephritis in 2010 or 2011, currently 17wks with intrauterine gestation, came to the ED after 3 days of increasing L back/flank pain, 2 episodes of vomiting, and no appetite. Patient states she has had this pain on and off since October, and has been given 3 separate courses of antibiotics since then, currently on keflex and does not recall the previous two. Patient does not recall what antibiotic she was put on the last time she was in the hospital for pyelonephritis. States prior to the current UTI symptoms starting in October, the last time she recalls having a UTI was about 2 years ago for which she did not require hospitalization, does not recall what antibiotic she was on. Denies taking any medications besides Lexapro 20mg and her vitamins. Patient is currently having significant chills. Denies any fever, pain with urination, urinary urgency or frequency, chest pain, abdominal pain. No nausea or vomiting currently. Discharge Exam Constitutional WD/WN, vitals as above Eyes PERRL, conjunctivae normal, anicteric sclerae Respiratory normal respiratory effort, lungs clear to auscultation Cardiovascular RRR, no murmur, no edema Skin no rashes, warm and dry Psychiatric A+Ox3, euthymic affect Discharge Plan Discharge Items Patient Disposition: Home - Self-Care Reason For Visit: PYELONEPHRITIS IN Discharge Diagnosis: Pyelonephritis Activity: Resume your previous activity Non-emergency contact: Primary Care Provider Call non-emergency contact if: you have any medication questions, your symptoms worsen, your pain is not controlled and you have a fever Follow-up/Referrals: Andrade Hensley PA-C [Primary Care Provider] - 01/24/24 10:30 am Diet: Regular Addtl Attending Provider Instructions: Ms. Landry, You were recently hospitalized for experiencing pyelonephritis and were treated with IV antibiotics. Please see recommendations below regarding your discharge. 1. Please take Cefpodoxime twice daily for the next 7 days. Your first dose will be in the evening of 01/16 Please take with food to avoid GI upset. 2. Please follow up closely with your OB provider. 3. Please follow up with your PCP within 1-2 weeks of discharge. 4. You may resume previous outpatient medications. If you develop any worsening urinary symptoms including blood in urine, urinary frequency/urgency, or inability to urinate please report back to the ER for further care. Sincerely, Guerline Henson PA-C Pending Studies at Discharge: No Stand-Alone Forms: My [employer], Smoking Cessation Medications and DC Order Prescriptions: New cefpodoxime 200 mg tablet 200 mg PO BID Qty: 14 0RF Rx Instructions: must administer with a meal/food Continued escitalopram oxalate 20 mg tablet 20 mg PO QAM Discontinued cephalexin 500 mg capsule 500 mg PO 4XD Discharge Orders: Discharge Order (Routine); Ordered 01/16/24 Ordered By: Guerline Henson Admission Data Admit Date/Time: 01/14/24 23:08 Attending Provider: David Wren Admit Provider: Froy Chen V. Primary Care Provider: Andrade Hensley Other Providers: Mary Higgins; Michael Hawk Other Interventions: Discharge Summary Assessment (RN) Last Done: 01/16/24 17:00 Hospital Stay Data Consultations 01/14/24 21:35 ED Decision to Admit Stat 01/14/24 23:37 Consult Urology Routine Diagnostic Imagining Performed 01/14/24 17:37 US Renal Bladder [US renal/blad retro comp] Stat Discharge Instructions Given to Patient (Per Discharging Provider) Ms. Landry, Seb were recently hospitalized for experiencing pyelonephritis and were treated with IV antibiotics. Please see recommendations below regarding your discharge. 1. Please take Cefpodoxime twice daily for the next 7 days. Your first dose will be in the evening of 01/16 Please take with food to avoid GI upset. 2. Please follow up closely with your OB provider. 3. Please follow up with your PCP within 1-2 weeks of discharge. 4. You may resume previous outpatient medications. If you develop any worsening urinary symptoms including blood in urine, urinary frequency/urgency, or inability to urinate please report back to the ER for further care. Sincerely, Guerline Henson PA-C Total Time Total Time Spent Total Time Spent (In Minutes): 38 Total Time Includes: Examination of the Patient, Discharge Planning and Medication Reconciliation Coding Level of Care Code 98183 INP/OBS DISCH >30 MIN Diagnoses Pyelonephritis affecting in second trimester O23.02 Nephrolithiasis N20.0 Tachycardia R00.0 Hypokalemia E87.6
[2024-01-16 16:08] VITALS: BP 100/64; PULSE 83; RESP 18; TEMP 97.7; O2SAT 97
== END 2024-01-16 18:32 | disposition home or self-care (01) | DRG 831 ==
LOC: ED 17:17 → SUATTDRO 23:08 → EDINP 23:08 → 2E 01-15 01:05